=== PATIENT | female | born 1945 | race African-American/Black ===

== ENCOUNTER 2022-09-17 11:36 | Emergency (ER) | payer BC, MEDICARE, OTHER ==
[~2022-09-17] VITALS: Ht 165.1 cm; Wt 63.0 kg
--- NOTE | 2022-09-17 11:42 | NUR ---
CODE STROKE CALLED
--- NOTE | 2022-09-17 11:45 | NUR ---
PT TO CT VIA [employer].
--- NOTE | 2022-09-17 11:46 | NUR ---
BIB son (Ad) BE FAST symptoms. CODE STROKE ACTIVATED. LKWT 09/16 NOC Fall out of bed this am. Right sided weakness. +Facial droop Slurred speech
--- NOTE | 2022-09-17 11:50 | NUR ---
CALLED [facility] [phone] MD WILL BE SUZETTE TORRES.
[2022-09-17 11:53] LABS: BASOPHILS % (AUTO) 0.3 % (0.0-2.0); EOSINOPHILS % (AUTO) 0.5 % (0.0-6.0); HEMATOCRIT 42 % (33-45); HEMOGLOBIN 13.6 g/dL (11.5-14.8); LYMPHOCYTES # (AUTO) 3.4 K/uL (0.8-4.8); LYMPHOCYTES % (AUTO) 21.1 % (20.0-44.0); MEAN CORPUSCULAR HGB CONC 32 g/dl (31.0-36.0); MEAN CORPUSCULAR VOLUME 82 fL (82-100); MONOCYTES # (AUTO) 0.9 K/uL (0.1-1.30); MONOCYTES % (AUTO) 5.7 % (2.0-12.0); NEUTROPHILS # (AUTO) 11.9 K/uL (1.8-8.9); NEUTROPHILS % (AUTO) 72.4 % (43.0-81.0); PLATELET COUNT (AUTO) 420 K/uL (150-450); RED BLOOD CELL COUNT(AUTO) 5.16 MIL/uL (4.0-5.2); WHITE BLOOD COUNT (AUTO) 16.4 K/uL (4.3-11.0)
[2022-09-17] MEDS ORDERED: IV NS 0.9% 250 ML IV ONE (11:57)
[2022-09-17] MEDS ORDERED: IOHEXOL-350 100 ML VIAL IV ONE (11:57)
[2022-09-17] MEDS ORDERED: CT SWABBABLE VALVE TRANS SET 1 EA INFUS.SET MC ONE (11:57)
--- NOTE | 2022-09-17 12:04 | NUR ---
PT RETURNED FROM CT
[2022-09-17 12:05] LABS: BILIRUBIN,DIRECT 0.1 mg/dL (0.0-0.2); GLUCOSE 124 mg/dL (74-106); SODIUM SERUM 140 mmol/L (136-145)
[2022-09-17 12:06] LABS: ALBUMIN 3.6 g/dL (3.4-5.0)
--- NOTE | 2022-09-17 12:09 | NUR ---
COVID SWAB COLLECTED AND SENT TO LAB
[2022-09-17 12:13] LABS: ALANINE AMINOTRANSFERASE 33 U/L (12-78); ALKALINE PHOSPHATASE 76 U/L (46-116); ASPARTATE AMINOTRANSFERASE 18 U/L (15-37); BILIRUBIN,TOTAL 0.1 mg/dL (0.2-1.0); CALCIUM, SERUM 10.5 mg/dL (8.5-10.1); CARBON DIOXIDE 29 mmol/L (21-32); CHLORIDE 105 mmol/L (98-107); CREATININE 0.8 mg/dL (0.6-1.3); POTASSIUM 4.3 mmol/L (3.5-5.1); TOTAL PROTEIN, SERUM 6.9 g/dL (6.4-8.2); UREA NITROGEN, BLOOD 22 mg/dL (7-18)
--- NOTE | 2022-09-17 12:18 | NUR ---
TELE NEURO ON THE SCREEN FOR EVAL
--- NOTE | 2022-09-17 12:20 | NUR ---
PERMISSIVE HYPERTENSION ADVISED BY NEUROLOGIST SHOULD BE OVER [phone] ER MD AWARE.
--- NOTE | 2022-09-17 12:23 | NUR ---
MOVE SHEET SUBMITTED.
--- NOTE | 2022-09-17 12:27 | NUR ---
dairy and food laboratory assistant at bedside for teleneurologist
--- NOTE | 2022-09-17 12:38 | NUR ---
[facility] CALLED AND SPOKE WITH ANABEL MISHRA,CCT
--- NOTE | 2022-09-17 12:41 | NUR ---
facesheet and CTA and Head CT faxed to [phone], [facility], Linda MISHRA
--- NOTE | 2022-09-17 12:42 | NUR ---
CALLED JANETTE OLSEN [phone] AND FAXED CLINICALS TO [facility] [phone]. WILL CALL US BACK.
--- NOTE | 2022-09-17 12:45 | NUR ---
consent received from daughter to transfer patient
[2022-09-17] MEDS ORDERED: ASPIRIN 325 MG TABLET ONE (12:48)
--- NOTE | 2022-09-17 12:49 | NUR ---
ASPIRIN 325MG GIVEN ORDERED. ABLE TO TOLERATE VIA PO. NO S/S OF ASPIRATION NOTED, NO COUGH.
[2022-09-17] MEDS ORDERED: ASPIRIN 325 MG TABLET PO ONE (13:00)
--- NOTE | 2022-09-17 13:00 | NUR ---
KATHERIN FROM [facility] CENTER: DR. RIVAS ACCEPTS, NEURO CRITIAL FELLOW WILL CONTACT US. [phone]
--- NOTE | 2022-09-17 13:12 | NUR ---
KEV CALLED FROM [facility] CCT NURSE WILL BE PICKED UP IN 20 MINS AND BE ON THEIR [address]. [phone]
--- NOTE | 2022-09-17 13:14 | NUR ---
[facility] GOT THE FAX
--- NOTE | 2022-09-17 13:16 | NUR ---
DR. MARTINEZ FROM [facility] NEURO FELLOW SPEAKING WITH DR. MCCLURE.
--- NOTE | 2022-09-17 13:27 | NUR ---
CRITICAL NURSE "CHRISTINA" CALLED FOR REPORT ON PATIENT. ON HER WAY TO [employer] PATIENT WITH TRANSPORT
[2022-09-17] MEDS ORDERED: IV NS 0.9% 1,000 ML BAG IV ONE (13:30)
--- NOTE | 2022-09-17 13:54 | NUR ---
CALLED [phone] [facility] CCT RUNNING LATE WILL UPDATE WHEN ON THE ROAD.
--- NOTE | 2022-09-17 13:59 | NUR ---
JONNA FROM [facility] CALLED [phone] ETA 15 MINS.
[2022-09-17 14:05] VITALS: BP 174/84
--- NOTE | 2022-09-17 14:20 | NUR ---
TEACHING ABOUT STROKE AND PREVENTION GIVEN TO BOTH PATIENT AND FAMILY (SON) AT BEDSIDE. TEACHBACK METHOD USED IN ORDER TO GAUGE UNDERSTANDING OF FAMILY.
--- NOTE | 2022-09-17 14:26 | NUR ---
HANDOFF REPORT GIVEN TO NURSE ANGULO FROM [facility] FOR CONTINUATION OF CARE. PATIENT TRANSFERRED BY INSTRUMENTATION AND CONTROLS TECHNICIAN
== END 2022-09-17 14:31 | disposition short-term general hospital (02) ==
LOC: ER 11:36
DX: I63.9 Cerebral infarction, unspecified (principal); I10 Essential (primary) hypertension; Z20.822 Contact with and (suspected) exposure to COVID-19
CPT/HCPCS: 99291; 70498; 96360; 71045; 87426; 93005; 70496; 85025; 80048; 80076; 36415; 84484; 85730; 83880; 70450; J7030; J7050; Q9967; C9803